=== PATIENT | male | born 1980 | race Caucasian/White ===

== ENCOUNTER 2020-08-13 09:46 | Outpatient (CLI) | payer BC, SELFPAY ==
--- NOTE | 2020-08-13 11:30 | NEURO_ITS ---
Impression: # Complains of nocturnal paresthesia of hands. # Bilateral Carpal Tunnel Syndrome, left more than right, sensory more than motor. # No ulnar neuropathy. # Normal needle/EMG exam. Nerve Conduction Studies Anti Sensory Summary Table Stim Site NR Peak (ms) P-T Amp (?V) Site1 Site2 Delta-P (ms) Dist (cm) Desmond (m/s) Left Median Anti Sensory (2-3nd Digit) Wrist 5.4 7.4 Wrist 2-3nd Digit 5.4 14.0 26 Wrist 5.9 6.0 Wrist 2-3nd Digit 5.4 14.0 26 Right Median Anti Sensory (2-3nd Digit) Wrist 5.3 18.6 Wrist 2-3nd Digit 5.3 14.0 26 Wrist 5.7 9.8 Wrist 2-3nd Digit 5.3 14.0 26 Left Radial Anti Sensory (Base 1st Digit) Wrist 2.0 25.6 Wrist Base 1st Digit 2.0 0.0 Right Radial Anti Sensory (Base 1st Digit) Wrist 2.1 24.8 Wrist Base 1st Digit 2.1 0.0 Left Ulnar Anti Sensory (5th Digit) Wrist 2.9 25.6 Wrist 5th Digit 2.9 14.0 48 Right Ulnar Anti Sensory (5th Digit) Wrist 2.4 72.1 Wrist 5th Digit 2.4 14.0 58 Motor Summary Table Stim Site NR Onset (ms) O-P Amp (mV) Site1 Site2 Delta-0 (ms) Dist (cm) Desmond (m/s) Left Median Motor (Abd Poll Brev) Wrist 4.9 2.2 Elbow Wrist 5.1 29.0 57 Elbow 10.0 0.6 Right Median Motor (Abd Poll Brev) Wrist 3.8 3.9 Elbow Wrist 5.1 28.0 55 Elbow 8.9 2.9 Left Ulnar Motor (Abd Dig Minimi) Wrist 2.5 6.2 A Elbow Wrist 4.6 30.0 65 A Elbow 7.1 5.7 Right Ulnar Motor (Abd Dig Minimi) Wrist 2.4 5.3 A Elbow Wrist 5.4 31.0 57 A Elbow 7.8 4.2 F Wave Studies NR F-Lat (ms) L-R F-Lat (ms) Left Median (Mrkrs) (Abd Poll Brev) 29.18 0.35 Right Median (Mrkrs) (Abd Poll Brev) 28.83 0.35 Left Ulnar (Mrkrs) (Abd Dig Min) 28.72 0.88 Right Ulnar (Mrkrs) (Abd Dig Min) 27.84 0.88 EMG Side Muscle Nerve Root Ins Act Fibs Amp Dur Recrt Comment Right 1stDorInt Ulnar C8-T1 Nml Nml Nml Nml Nml Right Ext Indicis Radial (Post Int) C7-8 Nml Nml Nml Nml Nml Right Ext Digitorum Radial (Post Int) C7-8 Nml Nml Nml Nml Nml Right BrachioRad Radial C5-6 Nml Nml Nml Nml Nml Right PronatorTeres Median C6-7 Nml Nml Nml Nml Nml Right Abd Poll Brev Median C8-T1 Nml Nml Nml Nml Nml Left 1stDorInt Ulnar C8-T1 Nml Nml Nml Nml Nml Left Ext Indicis Radial (Post Int) C7-8 Nml Nml Nml Nml Nml Left Ext Digitorum Radial (Post Int) C7-8 Nml Nml Nml Nml Nml Left BrachioRad Radial C5-6 Nml Nml Nml Nml Nml Left PronatorTeres Median C6-7 Nml Nml Nml Nml Nml Left Abd Poll Brev Median C8-T1 Nml Nml Nml Nml Nml MTDD
== END 2020-08-13 09:47 | disposition home or self-care (01) ==
PROVIDERS: PCP Family Medicine; Visit Provider Family Medicine
DX: R20.2 Paresthesia of skin (principal); G56.03 Carpal tunnel syndrome, bilateral upper limbs
CPT/HCPCS: 95886; 95911

== ENCOUNTER 2023-05-30 15:18 | Emergency (ER) | payer BC, SELFPAY ==
--- NOTE | ~2023-05-30 | XR_ITS ---
EXAMINATION: XR knee LT min 4V DATE: 05/30/2023 15:51 INDICATION: Left knee pain. TECHNIQUE: 5 views of left knee were obtained. COMPARISON: None. FINDINGS: Bone alignment is normal. No fracture. There is mild osteoarthritis of medial compartment. No knee joint effusion. IMPRESSION: 1. Mild left knee osteoarthritis. Reviewed, dictated and finalized at location A. [employer]IC[employer]URAL AGENT
[2023-05-30 15:21] VITALS: BP 157/113; PULSE 91; RESP 20; TEMP 36.8; O2SAT 97
--- NOTE | 2023-05-30 15:26 | ED.GENADULT ---
HPI - General Adult General Chief complaint: Extremity Injury, Lower <Rita Becerra APRN - Last Filed: 06/01/23 20:50> Stated complaint: felt pop in L knee <Rita Becerra APRN - Last Filed: 06/01/23 20:50> Time Seen by Provider: 05/30/23 15:41 <Rita Becerra APRN - Last Filed: 06/01/23 20:50> Source: patient <Mira Malave MD - Last Filed: 05/31/23 02:26> Mode of arrival: ambulatory <Mira Malave MD - Last Filed: 05/31/23 02:26> Limitations: no limitations <Mira Malave MD - Last Filed: 05/31/23 02:26> History of Present Illness HPI narrative: Price Snow is a 42 y/o male who presents with reports of right knee pain that he noticed about the day after thanks he did RICE therapy, it improved and then two weeks ago tweaked it again going up stairs and the pain returned he again did RICE therapy and it improved and today was walking and felt a pop to his left lateral knee and could not bear any weight on that leg. He reports about 6/10 pain while at rest. Pain to the left lateral aspect and some to the posterior aspect. <Rita Becerra APRN - Last Filed: 06/01/23 20:50> Price Snow is a 42 y/o male who presents with reports of right knee pain that he noticed the day after thanks after standing at a concert. He did RICE therapy, it improved and then at [place] re-aggrevated it again stepping up on a curb and the pain returned he again did RICE therapy and it improved and today was walking and felt a pop to his left lateral knee and could not bear any weight on that leg. Caught himself on a bar which prevented him from falling. He reports about 6/10 pain while at rest. Pain to the left lateral aspect and some to the posterior aspect. No paresthesias. He feels a pressure at his calf and the front of his knee and back of knee. On MD evaluation, pain is improved except worsened with extension and when lainey. <Mira Malave MD - Last Filed: 05/31/23 02:26> Related Data Allergies/adverse reactions: Allergies Allergy/AdvReac Type Severity Reaction Status Date / Time Penicillins Allergy Unknown Unknown Verified 12/27/18 09:51 <Rita Becerra, HUMAN RESOURCES COMPENSATION ANALYST - Last Filed: 06/01/23 20:50> Review of Systems Review of Systems: All systems reviewed & are unremarkable except as noted in HPI and below <Rita Becerra, HUMAN RESOURCES COMPENSATION ANALYST - Last Filed: 06/01/23 20:50> [facility] Social History Social History: Social History (Updated 05/31/23 @ 02:20 by Mira Malave MD) Living arrangements: with family Additional living arrangements comments: , 14 years <Rita Becerra HUMAN RESOURCES COMPENSATION ANALYST - Last Filed: 06/01/23 20:50> Exam Const: General: healthy appearing, no acute distress and alert; No confusion, diaphoretic or ill appearing <Mira Malave MD - Last Filed: 05/31/23 02:26> Nutritional Appearance: well nourished <Mira Malave MD - Last Filed: 05/31/23 02:26> Limitations: no limitations <Mira Malave MD - Last Filed: 05/31/23 02:26> HENMT: Head: normal to inspection <Mira Malave MD - Last Filed: 05/31/23 02:26> Other: gross auditory acuity intact <Mira Malave MD - Last Filed: 05/31/23 02:26> Eyes: Conjunctivae: conjunctivae normal <Mira Malave MD - Last Filed: 05/31/23 02:26> Neck: Neck: normal visual inspection and no meningeal signs <Mira Malave MD - Last Filed: 05/31/23 02:26> Resp: Effort & Inspection: normal respiratory effort, not labored, no retractions, not tachypneic and no use of accessory muscles <Mira Malave MD - Last Filed: 05/31/23 02:26> Cardio: Rate: regular rate <Mira Malave MD - Last Filed: 05/31/23 02:26> GI: GI Palp: Yes Soft to palpation <Mira Malave MD - Last Filed: 05/31/23 02:26> Skin: General skin exam: normal color, no jaundice and no pallor <Mira Malave MD - Last Filed: 05/31/23 02:26> Other: no overlying skin
[2023-05-30] MEDS: CYCLOBENZAPRINE HCL 10 MG TABLET PO (15:28)
[2023-05-30] MEDS: KETOROLAC 30 MG/ML VIAL (*BKC) IM (15:29)
[2023-05-30] MEDS: HYDROcodone/acetaminophen (*CRX) 5-325 MG TABLET 1 TAB PO (15:29)
--- NOTE | 2023-05-30 15:42 | PC.NURSE ---
first pill was wasted, had to override for new pill.
--- NOTE | 2023-05-30 17:56 | PC.NURSE ---
extensive verbal and demonstration education on crutch and knee immobilization given to pt. Pt able to verbalize understanding.
== END 2023-05-30 17:56 | disposition home or self-care (01) ==
PROVIDERS: Emergency Provider Student in an Organized Health Care Education/Training Program; PCP Family Medicine
DX: S83.92XA Sprain of unspecified site of left knee, initial encounter (principal); M17.12 Unilateral primary osteoarthritis, left knee; X50.9XXA Other and unspecified overexertion or strenuous movements or postures, initial encounter
CPT/HCPCS: 73564; 96372; 99283; A9270; J1885

== ENCOUNTER 2025-01-03 15:40 | Outpatient (CLI) | payer BC, SELFPAY ==
--- NOTE | ~2025-01-03 | MR_ITS ---
EXAMINATION: MR knee LT wo con DATE: 01/03/2025 16:26 INDICATION: unspecified injury of lower left leg TECHNIQUE: Magnetic resonance imaging (MRI) of the left knee was performed without intravenous contra st. Sequences included axial PD-weighted FS FSE, coronal PD-weighted FSE and PD-weighted FS FSE, sagi ttal PD-weighted FSE, and sagittal T2-weighted FS FSE. COMPARISON: X-ray left knee 05/30/2023 FINDINGS: Motion artifact is present in several sequences. Medial compartment: Mild diffuse cartilage thinning. Mild osteophytosis. Vertical tear at the meniscal root ligament. Pos sible oblique undersurface tear at the meniscal body versus artifact from motion. Lateral compartment: Mild diffuse cartilage thinning. Mild osteophytosis. Intact meniscus. Patellofemoral compartment: Moderate cartilage thinning along the lateral facet with subchondral cysts. Mild osteophytosis. Full- thickness fissure over the median ridge. Retinacula intact. Ligaments and tendons: The ACL, PCL, MCL, and LCL are intact. Remaining flexor and extensor tendons are intact. Fluid: Moderate joint effusion. Osseous/other: No suspicious focal or diffuse marrow signal. Degenerative subcortical cyst in the medial aspect of t he MFC near the intercondylar notch. IMPRESSION: Vertical tear of the posterior horn of the medial meniscus at the meniscal root ligament. Possible ob lique undersurface tear at the meniscal body versus motion artifact. Mild tricompartmental osteoarthritis. Moderate knee joint effusion. Reviewed, dictated and finalized at location K. IMPRESSION: Vertical tear of the posterior horn of the medial meniscus at the meniscal root ligament. Possible oblique undersurface tear at the meniscal body versus motio n artifact. Mild tricompartmental osteoarthritis. Moderate knee joint effusion.
--- OUTSIDE RECORDS SUMMARY | 2025-01-03 15:48 | XMS_ITS | Clinical Summary ---
Author Organization [facility] Address [address] [place] [address] Care Team Providers Care [facility] Nurse Name Role Phone Unavailable Primary Care Provider Unavailabl e Social History Tobacco Use Types Packs/Day Years Used Date Smoking Tobacco: Never Assessed Sex and Gender Information Value Date Recorded Sex Assigned at Not on file Legal Sex Male 8:23 PM CDT Gender Identity Not on file Sexual Orientation Not on file Plan of Treatment Health Maintenance Due Date Last Done Comments Colorectal Cancer Screening Colonoscopy (10 Years) 1978 Annual Physical 1981 Hepatitis C 1996 DTaP, Tdap and Td Vaccines ( 1 - Tdap) 1997 Hepatitis B Vaccines (1 of 3 - 19+ 3-dose series) 1997 COVID-19 Vaccine (2023-2 5 season) 2024 HPV Vaccines Aged Out No longer eligi ble based on patient's age to complete this topic Meningococcal B Vaccine Aged Out No l onger eligible based on patient's age to complete this topic Meningococcal Vaccine Aged Out No thuy alexandr eligible based on patient's age to complete this topic Pneumococcal Vaccine: Pediat rics (0 to 5 Years) and At-Risk Patients (6 to 49 Years) Aged Out No longer eligible b ased on patient's age to complete this topic RSV Immunizations Under 20 Months Aged Out No longer eligible based on patient's age to complete this topic
--- OUTSIDE RECORDS SUMMARY | 2025-01-03 15:48 | XMS_ITS | Clinical Summary ---
Author Organization [facility] Address [address] [place] [address] Care Team Providers Care Commercial Credit Portfolio Manager Name Role Phone Cindy Bernstein MD Primary Care Provider [phone] Source Comments [facility],non-owned Affiliates and Associated Physician Practices is amultiple site organization consisting of ambulatory clinics and hospital sitesin [place], [place], [place] and [place]. This disclosure is being madepursuant to the Care Everywhere program and may not contain all information available regarding this patient. Last updated 18.[facility] Allergies No known active allergies Medications * Be aware that medications may not be up to date on this document. Alwaysverify current medications with the patient. No known medications Active Problems No known active problems Social History Tobacco Use Types Packs/Day Years Used Date Smoking Tobacco: Never Assessed Sex and Gender Information Value Date Recorded Sex Assigned at Not on file Legal Sex Male 8:10 AM CDT Gender Identity Not on file Sexual Orientation Not on file Plan of Treatment Health Maintenance Due Date Last Done Comments COLOGUARD (AGES 45-75) - COL ON CA SCREENING 1978 COLON MONITORING 1978 COLONOSCOPY - COLON CA SCREENING 1978 CT COLONOGRAPHY - COLON CA SCREENING 1978 Colorectal Cancer Screening 1978 FIT - COLON CA SCREENING 1978 FLEX SIG - COLON CA SCREENING 1978 LIPID TESTING 1978 HIV SCREENING 1993 HEPATITIS C SCREENING 12/06/1996 DTAP/TDAP/TD VACCINES (1 - Tdap) 1997 HEPATITIS B VACCINE (1 of 3 - 19+ 3-dose series) 1997 COVID-19 VACCINE (1 - 2023-2 5 season) 2024 DEPRESSION SCREENING 05/23/2024 INFLUENZA VACCINE (#1) 2025 ZOSTER VACCINE (1 of 2) 2028 HIB VACCINE Aged Out No longer eligi ble based on patient's age to complete this topic HPV VACCINE Aged Out No longer eligi ble based on patient's age to complete this topic MENINGOCOCCAL (Group B) VACC INE SHARED DECISION-MAKING Aged Out No longer eligibl e based on patient's age to complete this topic MENINGOCOCCAL GROUPS A/C/Y/W VACCINE Aged Out No longer eligible b ased on patient's age to complete this topic PNEUMOCOCCAL VACCINE Aged Out No long er eligible based on patient's age to complete this topic Insurance ANTH Care Teams Commercial Credit Portfolio Manager Relationship Specialty Start Date End Date Cindy Bernstein MD PCP - General Family Medicine 01/13/18
== END 2025-01-03 15:41 | disposition home or self-care (01) ==
PROVIDERS: PCP Family Medicine; Visit Provider Nurse Practitioner Family
DX: M25.462 Effusion, left knee (principal); M17.12 Unilateral primary osteoarthritis, left knee; S83.242A Other tear of medial meniscus, current injury, left knee, initial encounter; X58.XXXA Exposure to other specified factors, initial encounter
CPT/HCPCS: 73721